=== PATIENT | male | born 1965 | race Caucasian/White ===

== ENCOUNTER → 2023-07-01 08:03 | Outpatient (REF) | payer BC, SELFPAY | LOC: DHCBS MAIN 08:03 | PROVIDERS: ATTENDING PHYSICIAN Nuclear Medicine Nuclear Cardiology; FAMILY PHYSICIAN Family Medicine | DX: Q23.1 Congenital insufficiency of aortic valve (principal) | CPT/HCPCS: 93306 ==

== ENCOUNTER → 2023-08-14 10:22 | Outpatient (REF) | payer BC, SELFPAY | LOC: HWRAD 10:22 | PROVIDERS: ATTENDING PHYSICIAN Physician Assistant Medical | DX: R59.0 Localized enlarged lymph nodes (principal) | CPT/HCPCS: 76536 ==

== ENCOUNTER → 2023-08-26 12:06 | Outpatient (REF) | payer BC, SELFPAY ==
[2023-08-26 12:41] VITALS: BP 141/88; BP_SYST 78
== END ==
LOC: RADI 12:06
PROVIDERS: ATTENDING PHYSICIAN Otolaryngology; FAMILY PHYSICIAN Physician Assistant Medical
DX: C83.51 Lymphoblastic (diffuse) lymphoma, lymph nodes of head, face, and neck (principal)
CPT/HCPCS: 88305; 38505; 76942; 88333; 88341; 88342; 88365

== ENCOUNTER → 2023-09-16 12:08 | Outpatient (REF) | payer BC, SELFPAY | LOC: RAD 12:08 | PROVIDERS: ATTENDING PHYSICIAN Internal Medicine Hematology & Oncology; FAMILY PHYSICIAN Family Medicine; REFERRING PHYSICIAN Nurse Practitioner Acute Care | DX: C83.01 Small cell B-cell lymphoma, lymph nodes of head, face, and neck (principal) | CPT/HCPCS: 70492; 71270; 74178; Q9967 ==

== ENCOUNTER 2024-01-01 13:02 | Inpatient (IN) | payer BC, SELFPAY ==
[2024-01-01] VITALS (10 sets, daily range): BP systolic 103–150; BP diastolic 59–91; PULSE 59–80; BMI 36.7
--- NOTE | 2024-01-01 09:26 | ED.GENMED ---
History of Present Illness
General
Chief Complaint: Rectal Bleeding
Source: patient
Exam Limitations: none
Time Seen by Provider: 01/01/24 09:03
Nursing documentation reviewed up to this point in time: agreed with
History of Present Illness
History of Present Illness:
58-year-old male with a history of lymphoma treated with radiation therapy several months ago presumed to be an a remission state, history of a congenital aortic insufficiency as well as GERD/gastritis on Nexium presents for epigastric pain over the
last week or so which was radiating up into his chest which he thought was his reflux. Patient restarted his Nexium after being off of it for period of time. Patient says throughout the week he has persisted to have the symptoms but has still been
able to eat and drink. This morning he had a bowel movement and noticed that it looked like a deep red color mixed with stool. He said it was a large volume. When he wiped it was 'all blood.' Patient is not on any blood thinners. He has minimal
epigastric discomfort now, no nausea or vomiting and never had hematemesis or coffee-ground emesis. Patient has never had a GI bleed that he knows of. No fever or chills, rectal pain, abdominal discomfort other than epigastric which feels like his
GERD
Past History
Past History
ED Past Medical History: GERD, Valvular disease (bicuspid aortic valve) and Other (pneumonia, Diverticulitis); Negative Asthma, HTN, Hypercholesterolemia or NIDDM
ED Past Surgical History: Other (ENT)
Social History
Tobacco: Former smoker
Alcohol: Occasional
Personal:
Living: with family
Family History
Family History: Negative Diabetes, Hypertension, CAD, Asthma or Sudden
Review of Systems
Review of Systems
Allergies reviewed?: Yes
All Other Systems: Not applicable
Phy Exam
Physical Exam
Physical Exam:
GENERAL: Alert , in no apparent distress
EYE: pupils equal and reactive
NECK: Supple
ENT: o/p clr, mmm.
CARDIAC: Regular rate and rhythm .
LUNGS: Clear breath sounds bilaterally, no acute respiratory distress, no wheezes/rales/rhonchi
ABDOMEN: Soft, without focal tenderness, no r/g, no cvat, normal bowel sounds
Rectal exam brownish stool with a slight reddish hue, not black, not tarry, no hemorrhoids, heme positive
NEUROLOGICAL: Alert and oriented, no focal neuro deficits
SKIN: Warm and dry, skin intact.
MUSCULOSKELETAL: No edema, well perfused. neg fely's sign
PSYCH: Normal and appropriate interaction.
Course
Orders/Labs/Results
Orders:
Orders
01/01/24 09:02
Electrocardiogram (*1) Urgent
Reason for Study: Abdominal Pain
EKG- Treatment ONCE
01/01/24 09:18
Type+Screen Urgent
CBC/With Diff [Complete Blood Count/With Diff] Urgent
CMP [Comprehensive Metabolic Panel] Urgent
PTT Urgent
Troponin I Urgent
01/01/24 09:30
Pantoprazole 80 mg/100 ml Nss [Protonix] 80 mg in 100 ml IV Q10H
Abnormal Lab Results
01/01/24
09:18
MCH 31.4 H pg
(27.0-31.0)
Glucose 110 H mg/dl
(70-99)
01/01/24 09:18
01/01/24 09:18
Vital Signs
Initial and Last Documented VS:
Initial Vital Signs
Temp Pulse Resp BP Pulse Ox
99.3 F 75 18 150/90 97
01/01/24 08:57 01/01/24 08:57 01/01/24 08:57 01/01/24 08:57 01/01/24 08:57
Last Documented Vital Signs
Temp Pulse Resp BP Pulse Ox
99.3 F 75 18 150/90 97
01/01/24 08:57 01/01/24 08:57 01/01/24 08:57 01/01/24 08:57 01/01/24 08:57
MDM/Problems Addressed
Differential Diagnosis Includes:
gerd, gastritis, PUD;
MDM/Problems Addressed:
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
will admit gi consult, protonix drip
*Critical Care Note
Total Time (30-74mins, 75-104mins- exclusive of procedures): Not Applicable
ED Attending Note
-
Portions of this chart may have been created with voice recognition software.� Occasional wrong word or��sound alike� substitutions may have occurred due to the inherent limitations of voice recognition software.
Discharge Plan
Departure
Patient Disposition: Admit
Date of Disposition: 01/01/24
Time of Disposition: 10:23
Admit to: Med/Surg
Presentation/result/management discussed w/ accepting MD/DO: Hospitalist
Condition: Fair
Covid-19: Not Applicable
Discharge Problem:
GI bleed
Prescriptions:
No Action
esomeprazole magnesium [Nexium] 40 MG capsule,delayed release(DR/EC)
40 mg PO BIDPRN PRN (Reason: GERD)
Patient Comments:
01/01/24: Patient is prescribed to take it once a day, but he has feeling unwell and has been taking twice a day for the past week.
fluticasone propionate 1 SPRAY spray,suspension
1 spray intranasal DAILY PRN (Reason: allergy symptoms)
loratadine 10 MG tablet
10 mg PO DAILY PRN (Reason: allergy symptoms)
nystatin 100,000 unit/mL Suspension
5 ml BUCCAL QID
Theragen Tablet
1 tab PO DAILY
Referrals:
John De Jesus MD [Family Provider] -
Interventions
Interventions:
*Risk Screen - Suicide Last Done: 01/01/24 08:57
*General Assessment Last Done: 01/01/24 08:57
*Neglect/Abuse Screening Last Done: 01/01/24 08:57
Discharge Date and Time
Print Language: GUINEAN
[2024-01-01 09:41] LABS: % Basophils 0.8 % (0-2); % Eosinophils 0.6 % (0-6); % Immature Granulocytes 0.5 % (0-0.5); % Lymphocytes 39.4 % (20.5-51.1); % Monocytes 8.2 % (1.7-9.3); % Neutrophils 50.5 % (42.2-75.2); Absolute Basophils 0.1 10^3/uL (0-0.2); Absolute Lymphocytes 2.5 10^3/uL (1.2-3.4); Absolute Monocytes 0.5 10^3/uL (0.1-0.6); Absolute Neutrophils 3.2 10^3/uL (1.4-6.5); Hematocrit 43.2 % (39.0-52.0); Hemoglobin 15.4 g/dL (13.0-18.0); Mean Corp Hgb Conc. 35.6 g/dL (33.0-37.0); Mean Corpuscular Hgb 31.4 pg (27.0-31.0); Mean Corpuscular Volume 88.2 fL (80.0-94.0); Mean Platelet Volume 9.3 fL (7.4-10.4); Nucleated Red Blood Cells % 0 % (-); Platelet Count 141 10^3/uL (130-400); Red Cell Dist. Width 13.3 % (11.5-14.5); White Blood Cell Count 6.3 10^3/uL (4.8-10.8)
[2024-01-01 09:46] LABS: APTT 29.3 Sec (23.4-35.0)
[2024-01-01 09:52] LABS: ALT (SGPT) 32 U/L (0-50); AST (SGOT) 40 U/L (17-59); Albumin 4.8 g/dl (3.5-5.0); Alkaline Phosphatase 67 U/L (38-126); Blood Urea Nitrogen 18 mg/dl (9-20); Calcium 9.7 mg/dl (8.4-10.2); Carbon Dioxide 27 mmol/L (22-30); Chloride 101 mmol/L (98-107); Glucose 110 mg/dl (70-99); Potassium 4.7 mmol/L (3.5-5.1); Sodium 135 mmol/L (135-145); Total Bilirubin 0.8 mg/dl (0.2-1.3); Total Protein 7.4 g/dl (6.3-8.2); eGFR > 60.00
[2024-01-01] MEDS: PROTONIX 100 IV ×2 (10:00→19:28)
[2024-01-01 10:03] LABS: Troponin I < 0.012 ng/ml
--- NOTE | 2024-01-01 12:46 | HPS.HSE ---
Family Physician
-
Family Physician: John De Jesus
Chief Complaint
-
epigastric pain, blood in stool
History of Present Illness
Patient is a 58-year-old male with past medical history of GERD, history of H. pylori, recent diagnosis of lymphoma status post radiation therapy x2, oral thrush, obesity, former smoker, hyperlipidemia came to ER for noticing bright red blood mixed
in stool in the morning today. Patient has been diagnosed with new lymphoma involving neck region in August/September earlier in the year and have undergone radiation therapy last month. Post treatment patient was prescribed to use NSAID for pain control
which patient stopped taking approximately 1 week back. For last 1 week patient had noticed worsening reflux and epigastric pain symptoms. Patient has history of previous reflux disease and required EGD in the past with Dr. Malloy. Patient started
back himself on Nexium at home. Patient continued to have waxing waning epigastric discomfort for last few days. Today in the morning patient noticed a large bowel movement with significant blood in it. Patient came to ER for further evaluation.
Denies of having any associated nausea or vomiting. No previous history of GI bleed/peptic ulcer disease.
Denies of having any cardiopulmonary or complaints.
Medical History
Past Medical History
Past Medical History: Reports Other
Additional Past Medical History:
GERD, history of H. pylori, recent diagnosis of lymphoma status post radiation therapy x2, oral thrush, obesity, former smoker, hyperlipidemia
Past Surgical History: Reports Other
Social History
Tobacco: Former Smoker
Alcohol: None
Personal:
Living: With Family
Family History
Family History: Not pertinent
Allergies / Home Medications
Allergies reflects when Allergies were last updated in N(i)².
Home Medications with original date entered in N(i)²
Allergy/Medication List:
Allergies
Allergy/AdvReac Type Severity Reaction Status Date / Time
seasonal allergies Allergy nasal Uncoded 01/01/24 08:57
symptoms
Home Medications
esomeprazole magnesium 40 mg capsule,delayed release (Nexium) 40 mg PO BIDPRN PRN GERD 03/07/09
fluticasone propionate 50 mcg/actuation nasal spray,suspension 1 spray intranasal DAILY PRN allergy symptoms 03/07/09
loratadine 10 mg tablet 10 mg PO DAILY PRN allergy symptoms 03/07/09
nystatin 100,000 unit/mL oral suspension 5 ml buccal QID oral thrush 01/01/24
therapeutic multivitamin 1 tab PO DAILY Supplement 01/01/24
Review of Systems
-
A 12 point ROS was completed and negative except as noted: Yes
Physical Exam
Vital Signs
Vital Signs
Temp Pulse Resp BP Pulse Ox
99.3 F 68 12 103/84 96
01/01/24 08:57 01/01/24 11:45 01/01/24 11:45 01/01/24 10:00 01/01/24 11:45
Physical Exam
General: Well Developed, Well Nourished and No Apparent Distress
HEENT: NormoCephalic, Moist mucous membranes and Atraumatic
Respiratory: Clear
Cardiac: S1/S2 and Regular Rhythm; No Murmur or Rub
GI: Soft, Non Distended, Normal Bowel Sounds and Tender (Epigastric); No Organomegaly
Rectal: Deferred by Provider
Musculoskeletal: No Clubbing, No Cyanosis and No Edema
Skin: No Rash
Neuro: Nonfocal/grossly intact
Laboratory Results
-
01/01/24 09:18
01/01/24 09:18
Laboratory Results
APTT 29.3 Sec (23.4-35.0) 01/01/24 09:18
Total Bilirubin 0.8 mg/dl (0.2-1.3) 01/01/24 09:18
AST 40 U/L (17-59) 01/01/24 09:18
ALT 32 U/L (0-50) 01/01/24 09:18
Alkaline Phosphatase 67 U/L (38-126) 01/01/24 09:18
Troponin I < 0.012 ng/ml 01/01/24 09:18
Impression/Plan
-
1. GI bleed
Suspected upper GI
-Patient have large blood pending bowel movement today.
-Reported history of reflux/H. pylori/recent NSAID use suspecting peptic ulcer disease with a brisk bleed. Although BUN does not support this.
-May have a component of lower GI bleed from diverticular disease.
-Maintain n.p.o./IV fluid for now
-Hemoglobin 15, follow-up H&H ordered
-Maintain on IV twice daily PPI for now
-GI asked for further evaluation and help.
2. Small lymphocytic leukemia/lymphoma
-PET scan from 10/23/2023 reviewed and involving mainly head and neck area
-Follows up with Dr. Islas of [facility] and Dr. Antoine from [facility]
-Underwent x2 radiation round
3. Oral thrush
-From recent requirement of antibiotic
-Continue home dose of oral nystatin swish and swallow
DVT PPX - SCD
Full code
Total time spent : 76 mins
I personally saw and examined the patient.
I have reviewed all diagnostic interpretations and treatment plans as written.
Time includes patient management by me, time spent at the patients bedside, time to review lab and imaging results, discussing patient care, documentation in the medical record, and time spent with the family or caregiver and discussing care plan
with RN/Consultants.
--- NOTE | 2024-01-01 13:01 | CON.GI ---
Addendum entered and electronically signed by Dorita Mendoza MD 01/01/24 16:49:
I saw and examined the patient.
The QUALITY ENG or PA's note was reviewed and I agree with the note.
Comment: 58-year-old male with history of lymphoma of the neck diagnosed in August 2023 when he had swelling of the lymph nodes, status postradiation-last October 2023, history of H. pylori status posttreatment and eradication presenting with 1 episode
of what appears to be large amount of dark red blood with bowel movement this morning. He has chronic epigastric discomfort which is going on for few years, more like a pressure, which has not been worse. No associated nausea or vomiting. No
trouble swallowing. Recent heartburn after he stopped the Nexium but he restarted it twice a day in the last week. He has been taking naproxen twice a day for a couple of months up until last week. No previous episode of GI bleeding. Last upper
endoscopy in 2019 with H. pylori status posttreatment and last colonoscopy in 2019, single tubular adenoma removed, repeat suggested in 5 years.
In the ER, hemoglobin was noted to be 15.4 with BUN of 18.No further bleeding since admission. Rectal exam with heme positive brown stool
-Reported dark red blood with bowel movements with normal hemoglobin, normal BUN and hemodynamically stable
No evidence of overt GI bleeding on exam
Significant naproxen use and recent radiation to the neck for lymphoma
Rule out esophagitis, ulcer disease versus other
Agree with PPI drip for today, but upper endoscopy tomorrow.
If upper endoscopy is negative, can set up for outpatient colonoscopy if there is no further bleeding.
-Epigastric pain which seems to be chronic.
Can follow-up with Dr. Malloy as outpatient for this.
Original Note:
Consultation
-
Date/Time Consultation Requested: 01/01/24 1030
Date/Time Consultation Performed: 01/01/24 1300
Requesting Provider: Lucy Barnes MD
Performing Provider: ABHI Jones, Dorita Mendoza MD
Reason for Consultation: rectal bleeding
Medical History
Chief Complaint / HPI
Chief Complaint: rectal bleeding/epigastric pain
History of Present Illness:
Pt is a 58yo with lymphoma of the neck diagnosed 08/2023 with radiation at [place], bicuspid aortic valve, GERD/gastritis, colon polyps, H pylori, anxiety, presents with epigastric abdominal pain and rectal bleeding. In reviewing with patient he has
jaw pain with several courses of antibiotics then finally diagnosis of lymphoma. He had radiation then was taking daily NSAIDs ( Naproxen BID for last few months) for neck swelling. He admits to stopping his Nexium about a month ago and began
with increased epigastric pain with restart. He was seen by radiation therapy on Friday with concern for recurrent thrush placed on Nystatin . He continued with epigastric pain and today noted larger amount of dark red blood prompting ER
evaluation. On admission hbg 15.4 with BUN 18 without tachycardia or hypotension.
Pt admits to feeling of upper abdominal pain with burning in abdomen. He denies issues with dysphagia, odynophagia, nausea, vomiting, diarrhea, constipation but does have occasional black stools.
Last colonoscopy [facility] 11/2019 TA and HP polyps, diverticulosis. Repeat 5 years. EGD 11/2019- - Normal esophagus. Erythematous mucosa gastric body and antrum, bx, few gastric polyps, normal duodenum. bx Hpylori s/p Pylera with neg stool testing
after treatment.
.
Past Medical History
Past Medical History: Cancer (lymphoma with radiation ), GERD, Valvular Disease (bicuspid aortic valve), Psychiatric (anxiety ) and Other (PNA, diverticulitis, thrush, H pylori, colon polyps)
Social History
Tobacco: Non-Smoker
Alcohol: Occasional (3-4 drinks per week )
Drug: None
Personal:
Living: With Family
Employment: Retired (semi retired )
Family History
Family History: Other (? grandfather with colon CA )
Allergies / Home Medications
Allergy/AdvReac Type Severity Reaction Status Date / Time
seasonal allergies Allergy nasal Uncoded 01/01/24 08:57
symptoms
�Medication �Instructions �Recorded
esomeprazole magnesium 40 mg 40 mg PO BIDPRN PRN GERD 03/07/09
capsule,delayed release (Nexium)
fluticasone propionate 50 1 spray intranasal DAILY PRN 03/07/09
mcg/actuation nasal allergy symptoms
spray,suspension
loratadine 10 mg tablet 10 mg PO DAILY PRN allergy symptoms 03/07/09
nystatin 100,000 unit/mL oral 5 ml buccal QID oral thrush 01/01/24
suspension
therapeutic multivitamin 1 tab PO DAILY Supplement 01/01/24
Review of Systems
-
History Source: Patient
Constitutional: Reports No Symptoms
EENT: Reports Other (recent thrush )
Respiratory: Reports No Symptoms
Cardiac: Reports No Symptoms
Abdomen/GI: Reports Abdominal Pain (epigastric pain ) and Bloody Stools
: Reports No Symptoms
Musculoskeletal: Reports Other (recent neck pain with NSAID use with lymphoma )
Skin: Reports No Symptoms
Neurological: Reports Weakness
Endocrine: Reports No Symptoms
Hematologic/Lymphatic: Reports Bleeding
Vital Signs
Temp Pulse Resp BP Pulse Ox
99.3 F 68 12 103/84 96
01/01/24 08:57 01/01/24 11:45 01/01/24 11:45 01/01/24 10:00 01/01/24 11:45
Physical Exam
Exam
General: Well Developed, Well Nourished and No Apparent Distress
HEENT: Normocephalic and Anicteric
Respiratory: Clear
Cardiac: Regular Rhythm
GI: Soft, Non Tender and Non Distended
Rectal: Hem Positive (brownish red hue )
Musculoskeletal: No Clubbing and No Cyanosis
Skin: Warm and Dry
Neuro: Awake, Alert and AO x 3
Psych: Calm and Other (anxious with bleeding )
Results
WBC 6.3 10^3/uL (4.8-10.8) 01/01/24 09:18
Hgb 15.4 g/dL (13.0-18.0) 01/01/24 09:18
Hct 43.2 % (39.0-52.0) 01/01/24 09:18
MCV 88.2 fL (80.0-94.0) 01/01/24 09:18
Plt Count 141 10^3/uL (130-400) 01/01/24 09:18
Absolute Neuts (auto) 3.2 10^3/uL (1.4-6.5) 01/01/24 09:18
APTT 29.3 Sec (23.4-35.0) 01/01/24 09:18
Sodium 135 mmol/L (135-145) 01/01/24 09:18
Potassium 4.7 mmol/L (3.5-5.1) 01/01/24 09:18
Chloride 101 mmol/L (98-107) 01/01/24 09:18
Carbon Dioxide 27 mmol/L (22-30) 01/01/24 09:18
BUN 18 mg/dl (9-20) 01/01/24 09:18
Creatinine 1.0 mg/dL (0.7-1.3) 01/01/24 09:18
Calcium 9.7 mg/dl (8.4-10.2) 01/01/24 09:18
Total Bilirubin 0.8 mg/dl (0.2-1.3) 01/01/24 09:18
AST 40 U/L (17-59) 01/01/24 09:18
ALT 32 U/L (0-50) 01/01/24 09:18
Alkaline Phosphatase 67 U/L (38-126) 01/01/24 09:18
Diagnostic Image Results:
09/2023 pet --
Mildly FDG avid bilateral neck lymph nodes as detailed, grossly stable in size from recent prior CT 09/16/2023 and consistent with biopsy-proven lymphoma.
No additional suspicious FDG avid lesions in the body.
Prior GI Procedures:
EGD: [facility] 11/[facility]- - Normal esophagus. Erythematous mucosa gastric body and antrum, bx, few gastric polyps, normal duodenum. bx Hpylori s/p Pylera with neg stool testing after treatment
Colonoscopy: [facility] 11/2019 TA and HP polyps, diverticulosis. Repeat 5 years.
Assessment / Plan
-
Pt is a 58yo with lymphoma of the neck diagnosed 08/2023 with radiation at [place], bicuspid aortic valve, GERD/gastritis, colon polyps, H pylori, anxiety, sleep apnea presents with epigastric abdominal pain and rectal bleeding. In reviewing with
patient he has jaw pain with several courses of antibiotics then finally diagnosis of lymphoma. He had radiation then was taking daily NSAIDs ( Naproxen BID for last few months) for neck swelling. He admits to stopping his Nexium about a month
ago and began with increased epigastric pain with restart. He was seen by radiation therapy on Friday with concern for recurrent thrush placed on Nystatin . He continued with epigastric pain and today noted larger amount of dark red blood
prompting ER evaluation. On admission hbg 15.4 with BUN 18 without tachycardia or hypotension. ER rectal brownish red hue.
-rectal bleeding
-epigastric pain
-recent concern for Thrush on Nystatin
-hx lymphoma of neck
other med problems:
-bicuspid AV
-hx GERD/gastritis
-H pylori with prior treatment
-hx colon polyps
PLAN:Etiology of bleeding related to PUD, ectasia, gastritis, esophagitis with recent thrush vs lower GI source as dark red color and red with wiping
plan for EGD in AM
pt stable in ER with stable BP, HR and hbg
trend hbg
cont PPI gtt
ok for sips clears tonight then NPO in AM
NSAID avoidance
if neg consider colonoscopy can do OP if stable hbg and no further bleeding
will follow
pt updated on EGD scheduling with change from possible today til tomorrow
reviewed with Dr. Barnes
-
-
-
Thank you for consultation and allowing me to participate in the patient's care. Please call the [facility] physician during the after hours with any questions or concerns.
[2024-01-01 15:42] LABS: Hematocrit 43.6 % (39.0-52.0); Hemoglobin 16.2 g/dL (13.0-18.0)
[2024-01-01] MEDS: MYCOSTATIN ORAL SUSPENSION 5 ML PO ×3 (16:20→22:40)
[2024-01-01 21:29] LABS: Hematocrit 42.5 % (39.0-52.0); Hemoglobin 15.7 g/dL (13.0-18.0)
[2024-01-02] MEDS: PROTONIX 100 IV (07:22)
[2024-01-02 07:30] VITALS: BP 120/75; BP 133/77; BP 137/78; PULSE 68; PULSE 70; PULSE 76
[2024-01-02 08:16] LABS: INR 1.07; PT 13.7 Sec (11.4-14.6)
[2024-01-02] MEDS: MYCOSTATIN ORAL SUSPENSION 5 ML PO ×2 (08:16→12:25)
[2024-01-02 08:32] LABS: % Basophils 0.4 % (0-2); % Eosinophils 1.6 % (0-6); % Immature Granulocytes 0.3 % (0-0.5); % Lymphocytes 43.1 % (20.5-51.1); % Monocytes 9.4 % (1.7-9.3); % Neutrophils 45.2 % (42.2-75.2); Absolute Eosinophils 0.1 10^3/uL (0-0.7); Absolute Monocytes 0.7 10^3/uL (0.1-0.6); Absolute Neutrophils 3.1 10^3/uL (1.4-6.5); Hematocrit 45.3 % (39.0-52.0); Mean Corp Hgb Conc. 35.3 g/dL (33.0-37.0); Mean Corpuscular Hgb 31.4 pg (27.0-31.0); Mean Corpuscular Volume 88.8 fL (80.0-94.0); Mean Platelet Volume 9.4 fL (7.4-10.4); Nucleated Red Blood Cells % 0 % (-); Platelet Count 139 10^3/uL (130-400); Red Cell Dist. Width 13.5 % (11.5-14.5); White Blood Cell Count 6.9 10^3/uL (4.8-10.8)
[2024-01-02 09:08] LABS: Blood Urea Nitrogen 15 mg/dl (9-20); Calcium 9.6 mg/dl (8.4-10.2); Carbon Dioxide 27 mmol/L (22-30); Chloride 104 mmol/L (98-107); Estimated Creatinine Clearance 110 ml/min; Glucose 100 mg/dl (70-99); Potassium 4.3 mmol/L (3.5-5.1); Sodium 138 mmol/L (135-145); eGFR > 60.00
--- NOTE | 2024-01-02 10:44 | W.PN.UPDATE ---
Update Note
Progress Note Update
OK to DC home today and will arrange Op colonoscopy with Dr. Malloy. Will s/o and will be available as needed
[2024-01-02 10:47] VITALS: BP 113/76; BP_SYST 16
[2024-01-02 11:02] VITALS: BP 112/76; BP_SYST 16
--- NOTE | 2024-01-02 11:45 | PTCARENOTE ---
Pt Returned from EGD. Report from PACU, Pt awake, alert and oriented x3. Pt has no c/o pain, VSS, Pt to be discharged after lunch, plan of care continues.
[2024-01-02 11:46] VITALS: BP 140/79
[2024-01-02 13:30] VITALS: BP 130/82
--- NOTE | 2024-01-02 14:14 | W.PN.HOSP.TC ---
Addendum entered and electronically signed by Reddy Barnes MD 01/02/24 16:01:
I saw and evaluated the patient. I reviewed the resident�s note and agree with findings and plan as documented in the resident�s note.
Patient denies of having any more bleeding episodes overnight
hemoglobin remained stable and 16 today
got EGD and showing normal esophagus, small hiatal hernia, few gastric polyp
Patient cleared by GI for discharge at this point
All questions answered.
Original Note:
Today's Communication/Plan
-
Discharge home with home medication regimen and follow-up with GI and primary care on outpatient basis.
Assessment / Plan
Assessment / Plan
Assessment-
58-year-old male with PMHx significant for GERD, H. pylori, recent diagnosis of lymphoma (neck region), s/p radiation therapy x 2, oral thrush, obesity, former smoker and hyperlipidemia presents to the ER for noticing bright red blood in the stool
-suspected upper GI bleed.
Plan-
Acute GI bleed-
Suspected upper GI?
Patient denies having bowel
GERD, H. pylori, recent NSAID use following radiation therapy-increases the suspicion for peptic ulcer disease, GERD diagnostic upper GI endoscopy today.
Upper GI endoscopy findings-small hiatal hernia, 3 to 6 mm sessile polyps with no bleeding in the gastric fundus and the body. No ulcers. Normal duodenum.
Hb on admission-15, on 01/01-16. Resume home Nexium dosing. Diverticulosis is still a possible diagnosis, colonoscopy to be planned on outpatient basis.
GI on board plan to discharge the patient and follow-up on outpatient basis.
Oral thrush-
From recent antibiotic, radiation-induced immunosuppression.
Continue home dose of oral nystatin
SLL/lymphoma-
Dr. Islas of [facility] and Dr. Lynn londono from [facility]
PET scan from 10/22 has evidence for head and neck area.
Currently on radiation therapy-received 2 cycles.
OSMAN-
Can use home CPAP machine at home settings.
Hyperlipidemia-
Not medically managed.
DVT prophylaxis-
SCD
CODE STATUS-
Full code.
Anticipated Discharge: 24 - 48 hours
Subjective/Interval History
-
Date of Service: January 02, 2024
Patient has mild epigastric pain but feels better.
Patient did not have bowel movement overnight. Patient is passing flatus.
Denies having nausea, vomitings, bloating, belching.
Objective Data
-
Labs:
Laboratory Results
01/02/24
07:27
WBC 6.9
Hgb 16.0
Hct 45.3
Plt Count 139
PT 13.7
INR 1.07
Sodium 138
Potassium 4.3
Chloride 104
Carbon Dioxide 27
BUN 15
Creatinine 1.0
Glucose 100 H
Calcium 9.6
Vital Signs:
Vital Signs
Temp Pulse Resp BP Pulse Ox
98.4 F 74 20 130/82 98
01/02/24 13:30 01/02/24 13:30 01/02/24 13:30 01/02/24 13:30 01/02/24 13:30
I&O
01/01/24 01/02/24 01/03/24
06:59 06:59 06:59
Intake Total 360 / 360
Balance 360 / 360
Review of Systems
-
History Source: Patient
Constitutional: Reports Not Done
EENT: Reports No Symptoms Reported
Respiratory: Reports No Symptoms
Cardiac: Reports No Symptoms
Abdomen/GI: Reports Abdominal Pain (Improved epigastric pain) and Bloody Stools (Resolved, no bowel movements since admission)
Genitourinary: Reports No Symptoms
Musculoskeletal: Reports No Symptoms
Neuro: Reports No Symptoms
Hematologic / Lymphatic: Reports No Symptoms
Physical Exam
-
General: Comfortable (On room air)
HEENT: Normocephalic, Atraumatic and Moist Mucous Membranes
Respiratory: Clear to Auscultation; Negative Wheezes, Rales or Rhonchi
Cardiac: Regular Rhythm and S1/S2; Negative Murmur, Rub or Gallop
GI: Soft, Nontender, Nondistended and Normal Bowel Sounds
Musculoskeletal: No Clubbing, No Cyanosis and No Edema
Neuro: AO x 3
Psych: Calm
Data Reviewed
-
Labs: Labs Reviewed by me and Discussed with Physician
--- NOTE | 2024-01-02 15:23 | W.DCSUMMARY ---
Addendum entered and electronically signed by Reddy Barnes MD 01/03/24 13:17:
Read, reviewed, and agree. See same day progress note for additional details. Time spent coordinating care, DC planning, review of DC plan of care with resident, transition of care, review of records in EMR, med rec, consults, notes, d/w
consultants, nursing, family, and CM mins
Original Note:
Documented by User: Maisha Jones MD, Resident 01/02/24 15:32
Discharge Summary
Discharge Data
Date of Admission: 01/01/24
Date of Discharge: 01/02/24
-
Pending Results: No
Hospital Course
Admission diagnosis -GI bleed.
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
GERD
H. pylori
SLL s/p radiation therapy x 2
Oral thrush
Obesity
Former smoker
Hyperlipidemia.
Hospital course-
58-year-old male was admitted to the hospital after having an acute GI bleed in the setting of a confluence of upper GI bleeding risk factors-GERD, H. pylori, use of NSAIDs s/p radiation therapy. During his 1 day hospital course patient was kept
n.p.o. over midnight, given IV Protonix twice daily and was evaluated with an upper GI endoscopy with no significant evidence for active bleeding, normal gastric and duodenal mucosa, with few gastric polyps. Other differential diagnosis for
patient's acute GI bleed could be secondary to colon pathologies and plan to get colonoscopy and outpatient GI follow-up upon discharge.
Patient did not pass bowel movements overnight. his hemoglobin during this hospital stay has been stable since admission-15 on 12/31, 16 on 01/01.
Data from hospital admission-
EGD-01/02/2024-
The examined esophagus was normal.
A small hiatal hernia was present.
A few 3 to 6 mm sessile polyps with no bleeding and no stigmata of recent bleeding were found in the gastric fundus and in the gastric body. Biopsies were taken with a cold forceps for histology. Estimated blood loss was minimal.
The examined duodenum was normal.
Discharge Plan
-
Patient Disposition: Home (Routine Discharge)
Discharge Diagnosis/Procedures: suspected Upper GI bleed
Diet: Low Cholesterol
Activity: No restrictions
Driving Restrictions: As prior to admission
Bathing Restrictions: None
Referrals:
John De Jesus MD [Family Provider] -
Dorita Mendoza MD [Active] -
Prescriptions:
Continued
esomeprazole magnesium [Nexium] 40 MG capsule,delayed release(DR/EC)
40 mg PO BIDPRN PRN (Reason: GERD)
Patient Comments:
01/01/24: Patient is prescribed to take it once a day, but he has feeling unwell and has been taking twice a day for the past week.
fluticasone propionate 1 SPRAY spray,suspension
1 spray intranasal DAILY PRN (Reason: allergy symptoms)
loratadine 10 MG tablet
10 mg PO DAILY PRN (Reason: allergy symptoms)
nystatin 100,000 unit/mL Suspension
5 ml BUCCAL QID
therapeutic multivitamin Tablet
1 tab PO DAILY
Discharge Orders:
Discharge Patient (As Directed); Ordered 01/02/24
Ordered By: Maisha Jones
Discharge Date and Time
Discharge Date/Time: 01/02/24 13:47
Print Language: MOLDOVAN

Documented by User: Reddy Barnes MD 01/03/24 13:16
Discharge Summary
Discharge Data
Date of Admission: 01/01/24
Date of Discharge: 01/02/24
Discharge Plan
-
Patient Disposition: Home (Routine Discharge)
Discharge Diagnosis/Procedures: suspected Upper GI bleed
Diet: Low Cholesterol
Activity: No restrictions
Driving Restrictions: As prior to admission
Bathing Restrictions: None
Referrals:
John De Jesus MD [Family Provider] -
Dorita Mendoza MD [Active] -
Prescriptions:
Continued
esomeprazole magnesium [Nexium] 40 MG capsule,delayed release(DR/EC)
40 mg PO BIDPRN PRN (Reason: GERD)
Patient Comments:
01/01/24: Patient is prescribed to take it once a day, but he has feeling unwell and has been taking twice a day for the past week.
fluticasone propionate 1 SPRAY spray,suspension
1 spray intranasal DAILY PRN (Reason: allergy symptoms)
loratadine 10 MG tablet
10 mg PO DAILY PRN (Reason: allergy symptoms)
nystatin 100,000 unit/mL Suspension
5 ml BUCCAL QID
therapeutic multivitamin Tablet
1 tab PO DAILY
Discharge Orders:
Discharge Patient (As Directed); Ordered 01/02/24
Ordered By: Maisha Jones
Discharge Date and Time
Discharge Date/Time: 01/02/24 13:47
Print Language: MOLDOVAN
== END 2024-01-02 13:47 | disposition home or self-care (01) | DRG 378 ==
LOC: 4 EAST ACU 13:02
PROVIDERS: Internal Medicine Gastroenterology; Nurse Practitioner Adult Health; Physician Assistant; Student in an Organized Health Care Education/Training Program; ADMITTING PHYSICIAN Hospitalist; CONSULT PHYSICIAN Internal Medicine Gastroenterology; EMERGENCY PHYSICIAN Emergency Medicine; FAMILY PHYSICIAN Family Medicine
PROC: 0DB68ZX Excision of Stomach, Via Natural or Artificial Opening Endoscopic, Diagnostic (ICD-10-PCS; 2024-01-02)
DX: K92.1 Melena (principal); B37.0 Candidal stomatitis; C85.91 Non-Hodgkin lymphoma, unspecified, lymph nodes of head, face, and neck; K44.9 Diaphragmatic hernia without obstruction or gangrene; K31.7 Polyp of stomach and duodenum; E66.9 Obesity, unspecified; K21.9 Gastro-esophageal reflux disease without esophagitis; E78.00 Pure hypercholesterolemia, unspecified; G47.33 Obstructive sleep apnea (adult) (pediatric); Z92.3 Personal history of irradiation; Z87.891 Personal history of nicotine dependence; Z68.36 Body mass index [BMI] 36.0-36.9, adult
CPT/HCPCS: 88305; 80048; 80053; 84484; 85014; 85018; 85025; 85610; 85730; 86850; 86900; 86901; 93005; 96374; 99285

== ENCOUNTER → 2024-02-06 06:34 | Day surgery (SDC) | payer BC, SELFPAY | LOC: GI 06:34 | PROVIDERS: ATTENDING PHYSICIAN Specialist | DX: Z12.11 Encounter for screening for malignant neoplasm of colon (principal); K57.30 Diverticulosis of large intestine without perforation or abscess without bleeding; D12.3 Benign neoplasm of transverse colon; K63.5 Polyp of colon; Z86.010 Personal history of colon polyps | CPT/HCPCS: 45385; 45380; 88305 ==

== ENCOUNTER → 2024-02-16 10:29 | Outpatient (REF) | payer BC, SELFPAY | LOC: HWRAD 10:29 | PROVIDERS: ATTENDING PHYSICIAN Radiology Radiation Oncology; FAMILY PHYSICIAN Family Medicine | DX: C83.00 Small cell B-cell lymphoma, unspecified site (principal) | CPT/HCPCS: 70491; Q9967 ==

== ENCOUNTER → 2024-08-17 15:23 | Outpatient (REF) | payer BC, SELFPAY | LOC: HWRCS 15:23 | PROVIDERS: ATTENDING PHYSICIAN Nuclear Medicine Nuclear Cardiology; FAMILY PHYSICIAN Family Medicine | DX: I10 Essential (primary) hypertension (principal); Q23.1 Congenital insufficiency of aortic valve; E78.2 Mixed hyperlipidemia | CPT/HCPCS: 93306 ==

== ENCOUNTER → 2024-12-09 06:41 | Outpatient (REF) | payer BC, SELFPAY | LOC: RAD 06:41 | PROVIDERS: ATTENDING PHYSICIAN Internal Medicine Hematology & Oncology; FAMILY PHYSICIAN Family Medicine | DX: C83.01 Small cell B-cell lymphoma, lymph nodes of head, face, and neck (principal) | CPT/HCPCS: 70491; 71260; 74177; Q9967 ==

== ENCOUNTER → 2025-04-15 07:16 | Outpatient (REF) | payer BC, SELFPAY | LOC: HWRAD 07:16 | PROVIDERS: ATTENDING PHYSICIAN Family Medicine | DX: R10.9 Unspecified abdominal pain (principal); K21.9 Gastro-esophageal reflux disease without esophagitis; E66.813 Obesity, class 3; I10 Essential (primary) hypertension | CPT/HCPCS: 76700 ==